=== PATIENT | female | born 1960 | race Caucasian/White ===

== ENCOUNTER → 2025-03-17 | Outpatient (CLI) | payer SELFPAY ==
--- NOTE | 2025-03-17 14:09 | CT_ITS ---
PROCEDURE: LEFT EXTREMITY UPPER WITHOUT CONTRAST 03/17/2025 REASON FOR EXAM: EVAL INTRA ARTICULAR DISPLACEMENT DRF TECHNIQUE: CT of the left wrist without contrast. Coronal and Sagittal reconstruction series were provided. One or more dose reduction techniques were used (e.g., Automated exposure control, adjustment of the mA and/or kV according to patient size, use of iterative reconstruction technique. RADIATION DOSE SUMMARY: CTDlvol: 24.58 mGy DLP: 572.9 mGycm COMPARISON: None available. FINDINGS: There is an acute comminuted fracture of the distal left radial metaphysis with intra-articular extension, no substantial displacement or angulation. No additional acute fracture is identified. Carpal alignment appears maintained, although there is dorsal tilt of the lunate which may reflect dorsal intercalated segment instability. Mild degenerative changes of the triscaphe joint articulations. Mild soft tissue swelling about the wrist. No radiopaque foreign body. CT/Extremity Upper without Contra IMPRESSION: Acute nondisplaced comminuted intra-articular fracture of the distal radial met aphysis. Dorsal tilt of the lunate suggestive of DISI. Otherwise preserved carpal align ment. Reading Location: [id number]
== END | disposition home or self-care (01) ==
PROVIDERS: PCP Family Medicine; Referring Provider Orthopaedic Surgery Sports Medicine; Visit Provider Orthopaedic Surgery Sports Medicine
DX: S52.572A Other intraarticular fracture of lower end of left radius, initial encounter for closed fracture (principal); X58.XXXA Exposure to other specified factors, initial encounter
CPT/HCPCS: 73200